=== PATIENT | male | born 1955 | race Caucasian/White ===

== ENCOUNTER 2018-12-15 19:24 | Inpatient (IN) ==
[2018-12-15] MEDS ORDERED: CLINDAMYCIN INJ 600 MG in PREMIX 1 EACH IV STA (19:38)
[2018-12-15] MEDS ORDERED: DIPH/TET/ACEL PERT BOOSTER VACCINE 0.5 ML VIAL IM ONE (19:38)
[2018-12-15 20:46] LABS: Basophils % 0.3 % (0.0-0.8); Hematocrit 42.2 VOL% (42.0-52.0); Hemoglobin 14.5 GM/DL (14.0-18.0); Immature Granulocytes % 0.6 %; Immature Granulocytes Absolute 0.07 #; Lymphocytes # 0.8 10*3/uL (1.4-4.0); Lymphocytes % 7.1 % (21.2-54.2); Mean Corpuscular HGB Conc 34.4 GM/DL (32-36); Mean Corpuscular Volume 96.8 FL (87-102); Mean Platelet Volume 9.6 FL (9.6-12.0); Monocytes % 5.9 % (1.7-12.7); Neutrophils % 86.1 % (38.7-73.9); Platelet Count 198 T/CUMM (130-400); Red Blood Count 4.36 MC/CUMM (3.8-5.5); Red Cell Distribution Width 12.7 % (9.3-17.3); White Blood Count 11.7 T/CUMM (4-12)
[2018-12-15 20:54] LABS: PT Patient Result 10.6 SECS (9.6-12.2)
[2018-12-15 21:05] LABS: Albumin 3.8 G/DL (3.4-5.0); Bilirubin,Total 0.6 MG/DL (0.2-1.0); Calcium 8.7 MG/DL (8.5-10.1); Osmolality,Calculated 274.7 MOS/KG (273-304); Total Protein 6.9 G/DL (6.4-8.3)
[2018-12-15] MEDS ORDERED: ONDANSETRON 4 MG/2 ML VIAL IV PRN (22:09)
[2018-12-15] MEDS ORDERED: MAGNESIUM HYDROXIDE SUSP 30 ML UDCUP PO PRN (22:09)
[2018-12-15] MEDS: HYDROmorphone 2 MG/1 ML VIAL IV PRN (22:28)
[2018-12-15] MEDS ORDERED: CLINDAMYCIN INJ 900 MG in PREMIX 1 EACH IV ONE (22:30)
[2018-12-15] MEDS: SIMVASTATIN 10 MG TABLET PO SCH (23:35)
[2018-12-15] MEDS: SODIUM CHLORIDE 0.9% 1,000 ML IV SCH (23:35)
[2018-12-16] MEDS: HYDROmorphone 2 MG/1 ML VIAL IV PRN ×10 (02:26→23:47)
[2018-12-16] MEDS ORDERED: CLINDAMYCIN INJ 50 ML IV ONE (07:51)
[2018-12-16] MEDS ORDERED: SUGAMMADEX 200 MG/2 ML VIAL IV ONE (08:17)
[2018-12-16] MEDS ORDERED: MAGNESIUM HYDROXIDE SUSP 30 ML UDCUP PO PRN (08:41)
[2018-12-16] MEDS ORDERED: KETOROLAC 15 MG/1 ML VIAL IV PRN (08:41)
[2018-12-16] MEDS ORDERED: PROPOFOL 200 MG/20 ML VIAL IV ONE (08:58)
[2018-12-16] MEDS ORDERED: fentaNYL 100 MCG/2 ML VIAL ONE (08:59)
[2018-12-16] MEDS ORDERED: LIDOCAINE 2% 5 ML VIAL ONE (08:59)
[2018-12-16] MEDS ORDERED: SEVOFLURANE 1 UNIT/15 MINUTE INH ONE (08:59)
[2018-12-16] MEDS ORDERED: MIDAZOLAM 2 MG/2 ML VIAL ONE (08:59)
[2018-12-16] MEDS ORDERED: ACETAMINOPHEN 1,000 MG/100 ML VIAL IV ONE (09:00)
[2018-12-16] MEDS ORDERED: PHENYLEPHRINE 1 MG/10 ML SYRINGE IV ONE (09:00)
[2018-12-16] MEDS ORDERED: SUCCINYLCHOLINE 200 MG/10 ML VIAL ONE (09:00)
[2018-12-16] MEDS ORDERED: ONDANSETRON 4 MG/2 ML VIAL ONE ×2 (09:00→09:25)
[2018-12-16] MEDS ORDERED: ROCURONIUM 100 MG/10 ML VIAL IV ONE (09:00)
[2018-12-16] MEDS ORDERED: ONDANSETRON 4 MG/2 ML VIAL IV PRN (09:24)
[2018-12-16] MEDS ORDERED: HYDROmorphone 2 MG/1 ML VIAL ONE (09:25)
[2018-12-16] MEDS: diphenhydrAMINE CAP 25 MG CAPSULE PO PRN (11:42)
[2018-12-16] MEDS: SODIUM CHLORIDE 0.9% 1,000 ML IV SCH ×2 (11:49→22:50)
[2018-12-16] MEDS: CLINDAMYCIN INJ 900 MG in PREMIX 1 EACH IV SCH ×2 (14:40→22:50)
[2018-12-16] MEDS: SIMVASTATIN 10 MG TABLET PO SCH (20:33)
[2018-12-17] MEDS: HYDROmorphone 2 MG/1 ML VIAL IV PRN ×2 (02:15→06:14)
[2018-12-17] MEDS: diphenhydrAMINE CAP 25 MG CAPSULE PO PRN (03:20)
[2018-12-17] MEDS ORDERED: ENOXAPARIN 40 MG/0.4 ML SYRINGE SUBCUT SCH (06:00)
[2018-12-17] MEDS: SODIUM CHLORIDE 0.9% 1,000 ML IV SCH (08:27)
[2018-12-17 12:40] VITALS: BP 146/73
== END 2018-12-17 13:45 | disposition home or self-care (01) | DRG 494 ==
LOC: N.ED 19:24 → N.EDINP 20:17 → N.3E 20:39
PROVIDERS: ADMIT Orthopaedic Surgery; ATTEND Orthopaedic Surgery